=== PATIENT | female | born 2000 | race Hispanic/Latino ===

== ENCOUNTER 2023-08-19 22:00 | Emergency (ER) | payer BC, OTHER ==
[~2023-08-19] VITALS: Ht 167.6 cm; Wt 39.5 kg
[2023-08-19 22:01] VITALS: BP 117/62; PULSE 89; RESP 16
[2023-08-19] MEDS ORDERED: DSSL PO (22:17)
[2023-08-19] MEDS ORDERED: [UNRECOGNIZED DRUG - CODE] RC (22:17)
== END 2023-08-19 23:03 | disposition home or self-care (01) ==
LOC: EDH 22:00
DX: K64.9 Unspecified hemorrhoids (principal)
CPT/HCPCS: 99282

== ENCOUNTER 2024-09-10 18:21 | Emergency (ER) | payer BC ==
[~2024-09-10] VITALS: Ht 160 cm; Wt 38.1 kg
[~2024-09-10 18:21] MED LIST: DSSL PO; [UNRECOGNIZED DRUG - CODE] RC
[2024-09-10 19:10] LABS: RAPID GROUP A STREP negative (NEGATIVE)
[2024-09-10 19:20] LABS: SARS-CoV-2, RNA, NAAT NEGATIVE SARS CoV-2 (NEGATIVE)
[2024-09-10 19:22] LABS: INFLUENZA TYPE B Negative For Type B (NEGATIVE)
[2024-09-10 19:28] LABS: INFLUENZA TYPE A Positive For Type A (NEGATIVE)
[2024-09-10] MEDS: OSELTAMIVIR PHOSPHATE 75 MG CAP PO ONE (20:37)
[2024-09-10] MEDS: acetaMINOPHEN 325 MG TAB PO ONE (20:37)
[2024-09-10] MEDS: guaiFENesin SUGAR-FREE 100 MG/5 ML UDCUP PO ONE (20:38)
[2024-09-10 20:47] VITALS: BP 116/68; PULSE 99; RESP 20; TEMP 99; O2SAT 99
[2024-09-10] MEDS ORDERED: OSEL75 PO (20:54)
--- NOTE | 2024-09-10 20:56 | ERN ---
ED Note History of Present Illness Stated Complaint: FEVER,BODY ACHES,MULTIPLE COMPLAINTS Chief Complaint: Cough Time Seen by MD: 18:30 Time Seen by Midlevel: 18:30 Dictation: The patient is a 23-year-old female with no past medical history who presents to the emergency department with complaints of body aches, runny nose, cough, fevers onset yesterday. Patient denies any shortness of breath. Allergies: Coded Allergies: No Known Allergies (Unverified Allergy, Unknown, 08/19/23) Home Meds Active Scripts Oseltamivir Phosphate (Tamiflu) 75 Mg Cap, 75 MG PO BID for 5 Days, #10 CAP Prov:SHAY FIGUEROA 09/10/24 Hydrocortisone (Proctocream-Hc) 2.5 % Cream..g., 30 GM RC Q8H, #30 GM Prov:ALICIA FOY MD 08/19/23 Docusate Sodium (Colace Liquid 100Mg/10Ml) 50 Mg/5 Ml Liq, 150 MG PO Q12H, #600 ML Prov:ALICIA FOY MD 08/19/23 Past Medical History Past Medical History: Constipation Surgical History: None LMP: Aug 27, 2024 RN Note Reviewed/Agreed w/PFSH: Yes Review of System Dictation Constitutional: Negative for ,chills, and weight loss positive for fever Eyes: Negative for injury, pain,redness, and discharge ENT: Negative for injury,pain or swelling Cardiovascular: Negative for chest pain, palpitations, and edema Respiratory: Negative for shortness of breath, , and wheezing, positive for cough Abdomen/GI: Negative for abdominal pain, nausea, vomiting, diarrhea, and constipation Back: Negative for injury and pain : Negative for injury, bleeding and discharge MS/Extremity: Negative for injury and deformity Skin: Negative for rash, and discoloration Neuro: Negative for headache, weakness, numbness, tingling, and seizure Psych: Negative for suicide ideation, homicidal ideation, and hallucinations Initial Vital Sign VS Vital Signs Date Time Temp Pulse Resp B/P (MAP) Pulse Ox O2 Delivery O2 Flow Rate FiO2 09/10/24 18:28 99.7 127 24 118/73 98 Room Air 0 09/10/24 20:47 21 Physical Exam Dictation Vital Signs reviewed General Appearance: Alert, oriented x 3, no acute distress, well developed, nourished. Head and Face: non-traumatic. Eyes: PERRL, pink conjunctivas, eyelid no trauma, anterior chamber with arcus senilis. Ears: Pinnas intact and no signs of trauma or erythema ear canals clear and no discharge TM no erythema Nose: No discharge, no bleeding. Oropharynx: Mouth normal, tongue pink. pharynx clear,no erythema, tonsils no exudates, no abscesses noted, mucous membrane moist Neck: Supple, non-tender, no thyromegaly, no masses, no JVD, no bruits Breast:Deferred Chest:No tenderness, no crepitus, no paradoxical movement, no retractions Lungs:Clear, well-ventilated, symmetric, no rales, no wheezing, no rhonchi, no stridor, good breath sounds bilaterally Heart: Regular rate, regular rhythm, no murmur, no gallops Vascular: no peripheral edema, Abdomen: Soft, positive bowel sounds, nondistended, no guarding, nontender, no rebound, no masses no hepatomegaly, no splenomegaly, no Foss's sign, no hernias. Rectal: Deferred Genital: Deferred Neurological: Normal speech, motor function intact, sensory function intact Musculoskeletal: Neck nontender, full range of motion, back nontender, full range of motion, Extremities: nontender, full range of motion Skin: Color pink, dry, no turgor, no rash, no lacerations, no abrasions, no contusions. Lymphatic: Deferred Results (Laboratory/Radiology) Laboratory/Radiology Laboratory Tests Test 09/10/24 18:25 Influenza Type A Antigen Positive For Type A Influenza Type B Antigen Negative For Type B SARS-CoV-2, RNA, NAAT NEGATIVE SARS CoV-2 Group A Streptococcus Rapid negative (NEGATIVE) REASON: cough ORDERING PHYSICIAN: SHAY FIGUEROA [employer] PROCEDURE: CXR1VW - CHEST 1VW CHEST 1VW HISTORY: Cough COMPARISON: None FINDINGS: A frontal projection of the chest was obtained. Prominent interstitial markings are seen with possible superimposed infiltrates. The heart is normal in size. No evidence of aortic calcification is seen. IMPRESSION: 1. Prominent interstitial markings are seen with possible superimposed infiltrates. Labs Reviewed?: Yes ED Course ED Course Orders Procedure Category Date Status Time Covid Rna Naat LAB 09/10/24 Complete 18:30 Influenza Type A & B, LAB 09/10/24 Complete Rapid 18:30 Rapid (Group A Strep) LAB 09/10/24 Complete 18:30 Guaifenesin Sug-Matthew PHA 09/10/24 Complete 100 Mg/5ml (Robituss 19:00 Acetaminophen 325 Tab PHA 09/10/24 Complete (Tylenol 325mg Tab 19:00 Chest 1vw RAD 09/10/24 Resulted 18:49 Oseltamivir Phosphate PHA 09/10/24 Complete (Tamiflu) 20:00 Current Medications Medications (Trade) Dose Ordered Sig/Ariela Route PRN Reason Start Time Stop Time Status Last Admin Dose Admin Acetaminophen (TYLenol 325MG TAB) 650 mg ONCE ONCE PO 09/10/24 19:00 09/10/24 19:01 DC 09/10/24 20:37 Guaifenesin (RobiTUSSin SUGAR-FREE 100 MG/ 5 ML UDCUP) 100 mg ONCE ONCE PO 09/10/24 19:00 09/10/24 19:01 DC 09/10/24 20:38 Oseltamivir Phosphate (Tamiflu) 75 mg ONCE ONCE PO 09/10/24 20:00 09/10/24 20:01 DC 09/10/24 20:37 Vital Signs Date Time Temp Pulse Resp B/P (MAP) Pulse Ox O2 Delivery O2 Flow Rate FiO2 09/10/24 20:47 99.0 99 20 116/68 99 Room Air* 0 21 09/10/24 18:28 99.7 127 24 118/73 98 Room Air 0 Medical Decision Making MDM The patient is a 23-year-old female with no past medical history who presents to the emergency department with complaints of body aches, runny nose, cough, fevers onset yesterday. Patient denies any shortness of breath. Serology positive for influenza A. Chest x-ray with obvious infiltrates. Patient will be treated with Tamiflu. Patient in no acute distress, stable vital signs. Differential diagnosis: Influenza a, upper respiratory infection, pneumonia, COVID-19 infection Need for hospitalization: Patient does not meet criteria for hospitalization. There are no social concerns with this patient. DX & DISP Disposition: Discharge Departure Impression: Primary Impression: Influenza A Condition: Stable Scripts Oseltamivir Phosphate (Tamiflu) 75 Mg Cap 75 MG PO BID for 5 Days, #10 CAP Prov: SHAY FIGUEROA [employer] 09/10/24 Additional Instructions: Please take medications as prescribed. Follow up with your primary doctor in 1- 2 day. Continue staying hydrated as tolerated at home. If symptoms worsen please return to ER. FOLLOW-UP WITH PRIMARY CARE PROVIDER IN 1 TO 2 DAYS. TAKE MEDICATIONS DIRECTED HERE IN THE EMERGENCY ROOM. OKAY TO CONTINUE HOME MEDICATIONS UNLESS OTHERWISE DISCUSSED DURING YOUR VISIT IN THE EMERGENCY ROOM TODAY. RETURN TO YOUR NEAREST EMERGENCY ROOM IF SYMPTOMS WORSEN OR IF THERE IS NO IMPROVEMENT. CALL 911 IF YOU NEED IMMEDIATE ASSISTANCE. TAKE TYLENOL OR MOTRIN [id number] NEEDED AND IF NO CONTRAINDICATIONS ARE PRESENT. INCREASE ORAL HYDRATION. A WOUND CULTURE OR URINE CULTURE WAS ORDERED HERE IN THE EMERGENCY ROOM DEPARTMENT PLEASE FOLLOW-UP WITH PRIMARY CARE PROVIDER AND ADVISE THEM TO GET REPEAT PORTS FROM OUR FACILITY. IF YOU HAD ANY BHAKTI WRAP/SPLINTS VERA T WERE APPLIED HERE, PLEASE DO NOT REMOVE THEM UNTIL YOU SEE YOUR PRIMARY CARE OR SPECIALTY. Referrals: SANIYA SMALL DO (PCP) Time of Disposition: 20:53 I have reviewed the case, and I agree with, Diagnosis and Plan SHAY FIUGEROA Sep 10, 2024 20:56
--- NOTE | 2024-09-11 00:16 | HMCIMG ---
CHEST 1VW HISTORY: Cough COMPARISON: None FINDINGS: A frontal projection of the chest was obtained. Prominent interstitial markings are seen with possible superimposed infiltrates. The heart is normal in size. No evidence of aortic calcification is seen. IMPRESSION: 1. Prominent interstitial markings are seen with possible superimposed infiltrates.
== END 2024-09-10 21:08 | disposition home or self-care (01) ==
LOC: EDH 18:21
DX: J10.1 Influenza due to other identified influenza virus with other respiratory manifestations (principal); Z20.822 Contact with and (suspected) exposure to COVID-19
CPT/HCPCS: 71045; 87635; 87804; 87880; 99283